=== PATIENT | male | born 1950 ===

== ENCOUNTER 2018-02-11 12:55 | Outpatient (CLI) | payer MEDICARE, OTHER ==
--- NOTE | 2018-02-11 13:57 | Diagnostic Imaging Report ---
Indication: Shortness of breath Technique: Continuous helical transaxial imaging of the chest was obtained from the thoracic inlet to the upper abdomen. No intravenous contrast was administered. Coronal 2-D reformats were also obtained. Total Dose length Product (DLP): 657.[address] Dose Index Volume (CTDIvol): 14.96 mGy Comparison: none Findings: The lungs are hyperexpanded and lucent consistent with emphysema and COPD. Mild reticular densities and some calcific foci associated with this noted in the right lung especially in the middle lobe. There is no consolidation, interstitial disease, pleural effusion or pericardial effusion. Small nodes seen in the mediastinum nonspecific. Aorta is moderately calcified. The visualized part of the upper abdomen shows prominence of the left renal pelvis and calyces. This is incompletely assessed on the current study. There are diverticula in the colon also noted. IMPRESSION: Moderate to severe emphysema/COPD. Scarring in the right middle lobe noted. Atherosclerotic vascular disease. Prominence of the collecting system of the left kidney partially visualized. This may be evaluated further if needed. The CT scanner at [facility] is accredited by the [employer] and the scans are performed using dose optimization techniques as appropriate to a performed exam including Automatic Exposure control.
== END 2018-02-11 14:55 | disposition home or self-care (01) ==
LOC: CAT 12:55
DX: R06.02 Shortness of breath (principal); J44.9 Chronic obstructive pulmonary disease, unspecified; I70.90 Unspecified atherosclerosis
CPT/HCPCS: 71250